=== PATIENT | male | born 1955 | race African-American/Black ===

== ENCOUNTER → 2017-10-16 | Outpatient (CLI) | payer OTHER | LOC: BRMIMAGING 11:14 | PROVIDERS: ATTEND Internal Medicine | DX: M77.31 Calcaneal spur, right foot (principal); M77.32 Calcaneal spur, left foot; M18.0 Bilateral primary osteoarthritis of first carpometacarpal joints; M17.0 Bilateral primary osteoarthritis of knee | CPT/HCPCS: 73130-PO; 73562-PO; 73630-PO ==